=== PATIENT | female | born 1990 ===

== ENCOUNTER 2020-04-26 01:13 | Inpatient (IN) ==
[2020-04-26] MEDS ORDERED: LACTATED RINGERS 1,000 ML IV STA (01:30)
[2020-04-26 02:55] LABS: Basophils % 0.2 % (0.0-0.8); Eosinophils % 0.2 % (0.00-10.9); Hematocrit 37.5 VOL% (35.7-47.0); Immature Granulocytes % 0.6 %; Immature Granulocytes Absolute 0.12 #; Lymphocytes # 0.9 10*3/uL (1.4-4.0); Lymphocytes % 4.7 % (21.3-54.2); Mean Corpuscular Volume 93.8 FL (87-102); Mean Platelet Volume 9.1 FL (9.6-12.0); Monocytes % 4.8 % (1.7-12.7); Neutrophils % 89.5 % (38.7-73.9); Platelet Count 303 T/CUMM (130-400); Red Cell Distribution Width 13.6 % (9.3-17.3); White Blood Count 19.5 T/CUMM (4-12)
[2020-04-26 03:09] LABS: PT Patient Result 10.3 SECS (9.8-11.9); Partial Thromboplastin Time 26.5 SECS (23.9-33.8)
[2020-04-26 03:24] LABS: Alanine Aminotransferase 28 U/L (13-56); Albumin 3.4 G/DL (3.4-5.0); Alkaline Phosphatase 113 U/L (45-117); Amylase 20 U/L (25-115); Aspartate Amino Transferase 34 U/L (0-37); Blood Urea Nitrogen 13 MG/DL (7-18); Calcium 7.7 MG/DL (8.5-10.1); Estimated Glom Filtration Rate 101 ML/MIN; Glucose 107 MG/DL (74-106); Osmolality,Calculated 276.5 MOS/KG (273-304); Total Protein 7.3 G/DL (6.4-8.3)
[2020-04-26] MEDS ORDERED: ONDANSETRON 4 MG/2 ML VIAL IV PRN ×2 (04:29→09:45)
[2020-04-26] MEDS ORDERED: ACETAMINOPHEN 325 MG TABLET PO PRN ×2 (04:29→09:45)
[2020-04-26] MEDS ORDERED: MORPHINE 4 MG/1 ML VIAL IV PRN (04:29)
[2020-04-26 05:14] LABS: Band Neutrophils 2 % (0-10); Hypochromasia 1+; Lymphocytes 6 % (20-55); Platelet Estimate Normal; Segmented Neutrophils 84 % (50-85); Total Cells Counted 100
[2020-04-26 06:30] LABS: Bacteria,Urine Moderate /HPF (Few); Bilirubin,Urine Negative (Negative); Blood, Urine Moderate mg/dL (Negative); Glucose,Urine (UA) Negative (Negative); Ketones,Urine Negative (Negative); Mucus,Urine Occasional /LPF (Occasional); Nitrite,Urine Positive (Negative); Protein,Urine Negative; RBC,Urine 28 /HPF (0-4); Squamous Epithelial Cell,Urine Occasional /HPF (0-10); Urine Appearance CLEAR (Clear); Urine Color Yellow (Yellow); Urine Specific Gravity > 1.060 (1.001-1.035); Urine Urobilinogen < 2.0 EU/DL (0.2-1.0); WBC,Urine 2 /HPF (0-6)
[2020-04-26 06:41] LABS: Barbiturates Screen,Urine Negative (Negative); Benzodiazepines Screen,Urine Negative (Negative); Cannabinoid Screen,Urine Positive (Negative); Opiate Screen,Urine Negative (Negative); Phencyclidine Screen,Urine Negative (Negative)
[2020-04-26] MEDS: DEXT 5% NACL 0.45% KCL 20 MEQ 20 MEQ/1,000 ML BAG IV SCH ×3 (07:49→15:56)
[2020-04-26 08:25] LABS: Basophils % 0.3 % (0.0-0.8); Eosinophils % 0.3 % (0.00-10.9); Hematocrit 38.5 VOL% (35.7-47.0); Hemoglobin 12.1 GM/DL (12.0-16.0); Immature Granulocytes % 0.5 %; Immature Granulocytes Absolute 0.06 #; Lymphocytes # 1.5 10*3/uL (1.4-4.0); Mean Corpuscular HGB Conc 31.4 GM/DL (32-36); Mean Platelet Volume 8.9 FL (9.6-12.0); Monocytes % 7.6 % (1.7-12.7); Neutrophils % 78.3 % (38.7-73.9); Platelet Count 296 T/CUMM (130-400); Red Blood Count 4.01 MC/CUMM (3.8-5.5); Red Cell Distribution Width 13.7 % (9.3-17.3); White Blood Count 11.9 T/CUMM (4-12)
[2020-04-26 08:50] LABS: Albumin 3.2 G/DL (3.4-5.0); Bilirubin,Total 0.6 MG/DL (0.2-1.0); Calcium 7.8 MG/DL (8.5-10.1); Osmolality,Calculated 277.4 MOS/KG (273-304); Total Protein 7.1 G/DL (6.4-8.3)
[2020-04-26] MEDS ORDERED: PANTOPRAZOLE 40 MG VIAL IV SCH (09:00)
[2020-04-26] MEDS ORDERED: ALBUTEROL/IPRATROPIUM 3 ML NEB RESP TX PRN (09:45)
[2020-04-26] MEDS ORDERED: BISACODYL 5 MG TABLET PO PRN (09:45)
[2020-04-26] MEDS ORDERED: KETOROLAC 15 MG/1 ML VIAL IV PRN (09:45)
[2020-04-26] MEDS ORDERED: HYDROmorphone 2 MG/1 ML VIAL IV PRN (09:45)
[2020-04-26] MEDS: LACTATED RINGERS 1,000 ML IV SCH (15:30)
[2020-04-26] MEDS ORDERED: ceFAZolin 2,000 MG in PREMIX 1 EACH IV ONE (17:39)
[2020-04-26] MEDS: HYDROmorphone 2 MG/1 ML VIAL IV PRN (21:53)
[2020-04-27] MEDS: HYDROmorphone 2 MG/1 ML VIAL IV PRN (02:53)
[2020-04-27] MEDS: LACTATED RINGERS 1,000 ML IV SCH ×4 (02:56→20:07)
[2020-04-27 06:30] LABS: Basophils % 0.1 % (0.0-0.8); Eosinophils # 0.2 10*3/uL (0.0-0.87); Eosinophils % 2.1 % (0.00-10.9); Hematocrit 33.4 VOL% (35.7-47.0); Hemoglobin 10.9 GM/DL (12.0-16.0); Immature Granulocytes % 0.3 %; Immature Granulocytes Absolute 0.03 #; Lymphocytes # 1.7 10*3/uL (1.4-4.0); Lymphocytes % 19.8 % (21.3-54.2); Mean Corpuscular HGB Conc 32.6 GM/DL (32-36); Mean Corpuscular Volume 93.8 FL (87-102); Neutrophils % 69.7 % (38.7-73.9); Platelet Count 261 T/CUMM (130-400); Red Blood Count 3.56 MC/CUMM (3.8-5.5); Red Cell Distribution Width 13.4 % (9.3-17.3); White Blood Count 8.6 T/CUMM (4-12)
[2020-04-27 06:48] LABS: Calcium 7.3 MG/DL (8.5-10.1); Osmolality,Calculated 274.5 MOS/KG (273-304)
[2020-04-27] MEDS ORDERED: DEXAMETHASONE 4 MG/1 ML VIAL ONE ×2 (07:34→13:48)
[2020-04-27] MEDS ORDERED: ROPIVACAINE 0.5% 30 ML VIAL ONE (07:34)
[2020-04-27] MEDS: PANTOPRAZOLE 40 MG TABLET PO SCH (09:02)
[2020-04-27] MEDS ORDERED: fentaNYL 100 MCG/2 ML VIAL ONE (09:23)
[2020-04-27] MEDS ORDERED: MIDAZOLAM 2 MG/2 ML VIAL ONE (09:23)
[2020-04-27] MEDS: ceFAZolin 2,000 MG in PREMIX 1 EACH IV ONE ×2 (09:28→13:55)
[2020-04-27] MEDS: DEXT 5% NACL 0.45% KCL 20 MEQ 20 MEQ/1,000 ML BAG IV SCH (09:58)
[2020-04-27] MEDS ORDERED: BACITRACIN OINT 0.9 GM PACK TOP ONE ×2 (12:44→12:53)
[2020-04-27] MEDS ORDERED: MAGNESIUM HYDROXIDE SUSP 30 ML UDCUP PO PRN (13:39)
[2020-04-27] MEDS ORDERED: diphenhydrAMINE CAP 25 MG CAPSULE PO PRN (13:39)
[2020-04-27] MEDS ORDERED: GLYCOPYRROLATE 0.4 MG/2 ML VIAL ONE (13:48)
[2020-04-27] MEDS ORDERED: propofoL 200 MG/20 ML VIAL IV ONE (13:48)
[2020-04-27] MEDS ORDERED: ONDANSETRON 4 MG/2 ML VIAL ONE (13:48)
[2020-04-27] MEDS ORDERED: SEVOFLURANE 1 UNIT/15 MINUTE INH ONE (13:48)
[2020-04-27] MEDS ORDERED: ROCURONIUM 100 MG/10 ML VIAL IV ONE (13:49)
[2020-04-27] MEDS ORDERED: SUCCINYLCHOLINE 200 MG/10 ML VIAL ONE (13:49)
[2020-04-27] MEDS: GENTAMICIN INJ 330 MG in SODIUM CHLORIDE 0.9% 100 ML IV SCH (15:07)
[2020-04-27] MEDS: ceFAZolin 2,000 MG in PREMIX 1 EACH IV SCH (20:05)
[2020-04-28] MEDS: HYDROmorphone 2 MG/1 ML VIAL IV PRN (03:49)
[2020-04-28] MEDS: ceFAZolin 2,000 MG in PREMIX 1 EACH IV SCH (03:54)
[2020-04-28 05:13] LABS: Basophils % 0.1 % (0.0-0.8); Hematocrit 31.3 VOL% (35.7-47.0); Hemoglobin 10.2 GM/DL (12.0-16.0); Immature Granulocytes % 0.5 %; Immature Granulocytes Absolute 0.06 #; Lymphocytes # 1.4 10*3/uL (1.4-4.0); Lymphocytes % 10.3 % (21.3-54.2); Mean Corpuscular HGB Conc 32.6 GM/DL (32-36); Mean Corpuscular Volume 91.3 FL (87-102); Mean Platelet Volume 10.1 FL (9.6-12.0); Monocytes % 7.4 % (1.7-12.7); Neutrophils % 81.7 % (38.7-73.9); Platelet Count 305 T/CUMM (130-400); Red Blood Count 3.43 MC/CUMM (3.8-5.5); Red Cell Distribution Width 13.2 % (9.3-17.3); White Blood Count 13.1 T/CUMM (4-12)
[2020-04-28 05:29] LABS: Calcium 7.6 MG/DL (8.5-10.1); Osmolality,Calculated 280.1 MOS/KG (273-304)
[2020-04-28] MEDS: LACTATED RINGERS 1,000 ML IV SCH ×2 (07:19→11:45)
[2020-04-28] MEDS ORDERED: FONDAPARINUX 2.5 MG/0.5 ML SYRINGE SUBCUT SCH (08:00)
[2020-04-28] MEDS: PANTOPRAZOLE 40 MG TABLET PO SCH (09:58)
[2020-04-28 12:17] VITALS: BP 144/77
[2020-04-28] MEDS: GENTAMICIN INJ 330 MG in SODIUM CHLORIDE 0.9% 100 ML IV SCH ×2 (14:53→14:54)
== END 2020-04-28 15:50 | disposition home or self-care (01) | DRG 493 ==
LOC: EDUNIT# → EDBD → N.EDINP 01:13 → N.ED 01:13 → OBSVTOIN 04:28 → N.3E 13:26
PROVIDERS: ADMIT Student in an Organized Health Care Education/Training Program; ATTEND Student in an Organized Health Care Education/Training Program